=== PATIENT | male | born 1950 | race Caucasian/White ===

== ENCOUNTER 2018-07-16 08:42 | Inpatient (IN) | payer OTHER ==
[~2018-07-16] VITALS: Ht 185.4 cm; Wt 107.6 kg
[2018-07-16 09:23] LABS: HEMATOCRIT 40.6 % (38.0-50.0); HEMOGLOBIN 13.1 G/DL (12.5-16.6); MCH 29.6 PG (29.0-34.0); MCHC 32.3 G/DL (30.0-36.0); MCV 91.9 FL (86-99); NRBC (%) 0.2 /100 WBC (0-0); PLATELET COUNT 411 K/uL (156-360); RBC DIS.WIDTH-CV 17.6 % (11.8-14.6); RBC DIS.WIDTH-SD 59.1 % (39-53); RED BLOOD COUNT 4.42 M/uL (4.00-5.50)
[2018-07-16 09:26] LABS: ALBUMIN 4.6 g/dL (3.2-4.8); CHLORIDE 110 mEq/L (99-109); POTASSIUM 5.1 mEq/L (3.7-5.4); SODIUM 140 mEq/L (136-147)
[2018-07-16 09:28] LABS: GLUCOSE 193 mg/dL (70-99)
[2018-07-16 09:29] LABS: TOTAL PROTEIN 7.1 g/dL (6.4-8.3)
[2018-07-16 09:30] LABS: TOTAL BILIRUBIN 0.4 mg/dL (0.0-1.0)
[2018-07-16 09:32] LABS: ALKALINE PHOSPHATASE 82 IU/L (3-129); CREATININE 1.4 mg/dL (0.6-1.3); GFR ESTIMATE (CALCULATED) 53 mL/min/ (58.99-99999)
[2018-07-16 09:33] LABS: UREA NITROGEN (BUN) 28 mg/dL (9-23)
[2018-07-16 09:34] LABS: AST (GOT) 17 IU/L (2-34)
[2018-07-16 09:35] LABS: ALT (GPT) 20 IU/L (3-49)
[2018-07-16 10:56] LABS: ABS NEUTROPHIL COUNT 58.8; ANISOCYTOSIS 1+; BAND NEUTROPHILS 20.5 % (0-8.0); EOSINOPHIL ABS CT 1.7; MYELOCYTES 4.5 %; NUCLEATED RBC'S 0.5; OTHER 0.5; PLAT.SUFFICIENCY INCREASED; SEG.NEUTROPHILS 49.5 % (46.0-76.0)
[2018-07-16 11:08] LABS: APPEARANCE CLEAR ((CLEAR)); BILIRUBIN NEGATIVE; BLOOD NEGATIVE; COLOR YELLOW ((YELLOW)); GLUCOSE (STRIP) NEGATIVE; KETONES NEGATIVE; LEUKOCYTES NEGATIVE; NITRITE NEGATIVE; PROTEIN (STRIP) NEGATIVE; SPECIFIC GRAVITY 1.013 (1.000-1.030); UCUL ADDED? NO; UROBILINOGEN 0.2 MG/DL (0.2-1.0)
[2018-07-16] MEDS ORDERED: TOUJEO SOL300 UNIT/1 SC (11:30)
[2018-07-16] MEDS ORDERED: APIDRA SOL100 UNIT/1 SC (11:31)
[2018-07-16] MEDS ORDERED: COZAAR50 MG PO (11:32)
[2018-07-16] MEDS ORDERED: LOPRESSOR50 MG PO (11:32)
[2018-07-16] MEDS ORDERED: LIPITOR20 MG PO (11:32)
[2018-07-16 12:12] LABS: DIRECT BILIRUBIN 0.1 mg/dL (0.0-0.3)
[2018-07-16 12:44] LABS: MAGNESIUM 2.2 mg/dL (1.3-2.7)
[2018-07-16 12:49] LABS: PHOSPHORUS 4.6 mg/dL (2.5-4.9)
[2018-07-16 12:51] LABS: URIC ACID 11.1 mg/dL (3.1-9.2)
[2018-07-17] VITALS (7 sets, daily range): BP systolic 127–182; BP diastolic 67–86
[2018-07-17 06:51] LABS: INTER. NORMALIZED RATIO 1.1
[2018-07-17 07:03] LABS: CHLORIDE 107 MEQ/L (99-109); CREATININE 1.3 MG/DL (0.6-1.3); GFR ESTIMATE (CALCULATED) 58 mL/min/ (58.99-99999); GLUCOSE 129 mg/dL (70-99); POTASSIUM 4.7 MEQ/L (3.7-5.4); SODIUM 141 MEQ/L (136-147); UREA NITROGEN (BUN) 28 mg/dL (9-23)
[2018-07-17 07:09] LABS: NRBC (%) 0.1 /100 WBC (0-0); PLATELET COUNT 399 K/uL (156-360)
[2018-07-17 07:13] LABS: HEMATOCRIT 39.1 % (38.0-50.0); HEMOGLOBIN 12.3 G/DL (12.5-16.6); MCH 28.9 PG (29.0-34.0); MCHC 31.5 G/DL (30.0-36.0); RBC DIS.WIDTH-CV 17.5 % (11.8-14.6); RBC DIS.WIDTH-SD 58.8 % (39-53); RED BLOOD COUNT 4.25 M/uL (4.00-5.50)
[2018-07-17 07:17] LABS: WHITE BLOOD COUNT 84.9 K/uL (4.1-10.2)
[2018-07-18 03:31] VITALS: BP 111/64
[2018-07-18 07:43] VITALS: BP 152/72
[2018-07-18 10:02] LABS: NRBC (%) 0.2 /100 WBC (0-0); PLATELET COUNT 433 K/uL (156-360)
[2018-07-18 10:06] LABS: HEMATOCRIT 42.2 % (38.0-50.0); HEMOGLOBIN 13.3 G/DL (12.5-16.6); MCHC 31.5 G/DL (30.0-36.0); MCV 91.9 FL (86-99); RBC DIS.WIDTH-CV 17.6 % (11.8-14.6); RBC DIS.WIDTH-SD 59.6 % (39-53); RED BLOOD COUNT 4.59 M/uL (4.00-5.50)
[2018-07-18 10:07] LABS: WHITE BLOOD COUNT 91.5 K/uL (4.1-10.2)
[2018-07-18 11:10] VITALS: BP 152/60
[2018-07-18 11:33] VITALS: BP 152/60
[2018-07-18] MEDS ORDERED: KEFLEX500 MG PO (12:10)
[2018-07-18] MEDS ORDERED: ANTI-ITCH28 G1 TP (13:57)
== END 2018-07-18 15:00 | disposition home or self-care (01) | DRG 690 ==
LOC: EME 08:42 → 5EAST 10:41 → EDOF 10:41 → ENRESERV 10:59 → 5EAST 14:27
PROVIDERS: Emergency Medicine; Internal Medicine; Student in an Organized Health Care Education/Training Program
DX: N10 Acute pyelonephritis (principal); C92.10 Chronic myeloid leukemia, BCR/ABL-positive, not having achieved remission; E66.9 Obesity, unspecified; E11.22 Type 2 diabetes mellitus with diabetic chronic kidney disease; I12.9 Hypertensive chronic kidney disease with stage 1 through stage 4 chronic kidney disease, or unspecified chronic kidney disease; N18.3 Chronic kidney disease, stage 3 (moderate); N17.9 Acute kidney failure, unspecified; E78.5 Hyperlipidemia, unspecified; M48.00 Spinal stenosis, site unspecified; K57.30 Diverticulosis of large intestine without perforation or abscess without bleeding; K80.20 Calculus of gallbladder without cholecystitis without obstruction; M48.061 Spinal stenosis, lumbar region without neurogenic claudication; M54.5 Low back pain; Z66 Do not resuscitate; Z79.4 Long term (current) use of insulin; Z79.899 Other long term (current) drug therapy; Z87.891 Personal history of nicotine dependence
CPT/HCPCS: 74176; 80048; 80053; 81003; 82248; 82436; 82948; 83605; 83735; 84100; 84300; 84550; 85025; 85027; 85610; 87040; 99281; 99285; J0696; J1650; J1815; J1885; J2270; J2405; J3010; J7040